=== PATIENT | female | born 2000 | race Caucasian/White ===

== ENCOUNTER 2021-10-02 16:43 | Emergency (ER) | payer SELFPAY ==
[~2021-10-02] VITALS: Ht 167.6 cm; Wt 127.3 kg
[2021-10-02] MEDS ORDERED: ACETAMINOPHEN 325 MG TAB PO ONE (18:40)
[2021-10-02] MEDS ORDERED: ONDANSETRON 4 MG ORAL DISINTEGRATING TAB PO ONE (18:40)
[2021-10-02] MEDS ORDERED: ALBUTEROL 90 MCG/ACT 8GM HFA INHALER INH ONE (18:40)
[2021-10-02] MEDS ORDERED: UNRESOLVED CLARIFICATION ENTRY XX STA (18:49)
[2021-10-02 18:53] LABS: RSV AMPLIFICATION NEGATIVE (NEGATIVE)
[2021-10-02 19:22] LABS: BASO # 0.1 10^3/uL (0.0-0.2); BASO % 0.5 % (0.0-1.0); EOS # 0.5 10^3/uL (0.0-0.5); EOS % 3.8 % (0.0-3.0); HEMATOCRIT 38.3 % (36.0-47.0); HEMOGLOBIN 11.4 g/dl (12.0-15.5); LYMPH # 2.8 10^3/uL (1.5-5.0); LYMPH % 22.1 % (24.0-44.0); MEAN CORPUSCULAR HEMOGLOBIN 21.6 pg (27.0-33.0); MEAN CORPUSCULAR HGB CONC 29.8 g/dl (32.0-36.5); MEAN CORPUSCULAR VOLUME 72.7 fl (80.0-96.0); MONO # 1.1 10^3/uL (0.0-0.8); MONO % 8.4 % (2.0-8.0); NEUTROPHILS # 8.2 10^3/uL (1.5-8.5); PLATELET COUNT, AUTOMATED 500 10^3/uL (150-450); RED BLOOD COUNT 5.27 10^6/uL (4.00-5.40); WHITE BLOOD COUNT 12.6 10^3/uL (4.0-10.0)
--- NOTE | 2021-10-02 19:33 | ECGEPIP ---
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
[2021-10-02 19:41] LABS: BLOOD UREA NITROGEN 16 MG/DL (7-18); CALCIUM LEVEL 9.1 MG/DL (8.5-10.1); CARBON DIOXIDE LEVEL 28 MEQ/L (21-32); CHLORIDE LEVEL 106 MEQ/L (98-107); CREATININE FOR GFR 0.79 MG/DL (0.55-1.30); GLOMERULAR FILTRATION RATE > 60.0 (>60); GLUCOSE, FASTING 90 MG/DL (70-100); POTASSIUM SERUM 4.1 MEQ/L (3.5-5.1); SODIUM LEVEL 138 MEQ/L (136-145)
[2021-10-02 19:48] LABS: HCG, SERUM QUALITATIVE NEGATIVE (NEGATIVE)
--- NOTE | 2021-10-02 20:11 | REP ---
INDICATION: SOB COMPARISON: None. TECHNIQUE: PA and lateral. FINDINGS: The mediastinum and cardiac silhouette are normal. The lung castro are clear and without acute consolidation, effusion, or pneumothorax. The skeletal structures are intact and normal. IMPRESSION: No acute cardiopulmonary process. <Electronically signed by Lorenzo Velarde > 10/02/212006
[2021-10-02 20:33] VITALS: O2SAT 97
[2021-10-02] MEDS ORDERED: dexameTHASONE 4 MG/ML 1ML VIAL (J1100 PER 1MG) IV ONE (21:00)
--- NOTE | 2021-10-02 21:47 | REPVR ---
PROCEDURE INFORMATION: Exam: CT Chest Without Contrast; Diagnostic Exam date and time: 10/02/2021 9:32 PM Age: 21 years old Clinical indication: Shortness of breath; Additional info: SOB wheezing TECHNIQUE: Imaging protocol: Diagnostic computed tomography of the chest without contrast. 3D rendering (Not supervised by radiologist): MIP and/or 3D reconstructed images were created by the technologist. Radiation optimization: All CT scans at this facility use at least one of these dose optimization techniques: automated exposure control; mA and/or kV adjustment per patient size (includes targeted exams where dose is matched to clinical indication); or iterative reconstruction. COMPARISON: CR Chest, 2 view PA, Lat 10/02/2021 7:53 PM FINDINGS: Lungs: Unremarkable. No consolidation. No masses. Pleural spaces: Unremarkable. No pneumothorax. No pleural effusion. Heart: Unremarkable. No cardiomegaly. No pericardial effusion. Aorta: Unremarkable. No aortic aneurysm. Lymph nodes: Unremarkable. No enlarged lymph nodes. Gallbladder and bile ducts: Cholecystectomy. Bones/joints: Dextroscoliosis. Soft tissues: Unremarkable. IMPRESSION: No acute findings. Electronically signed by: Corey Jameson On 10/02/2021 21:46:57 PM
[2021-10-02] MEDS ORDERED: PROAAER10 INH (21:57)
[2021-10-02] MEDS ORDERED: MEDR4PAK PO (21:57)
[2021-10-02 22:25] VITALS: BP 125/77
== END 2021-10-02 22:32 | disposition home or self-care (01) ==
LOC: M ED 16:43
DX: J06.9 Acute upper respiratory infection, unspecified (principal); R06.02 Shortness of breath; Z90.721 Acquired absence of ovaries, unilateral; Z90.89 Acquired absence of other organs
CPT/HCPCS: 71046; 71250; 80048; 84702; 84703; 85025; 85379; 87631; 87880; 93005; 94640; 96374; 99284; J1100; Q0162

== ENCOUNTER 2021-11-04 15:07 | Emergency (ER) | payer SELFPAY ==
[~2021-11-04] VITALS: Ht 170.2 cm; Wt 129.6 kg
[~2021-11-04 15:07] MED LIST: MEDR4PAK PO; PROAAER10 INH
[2021-11-04 15:11] VITALS: BP 137/93
== END 2021-11-04 16:32 | disposition home or self-care (01) ==
LOC: M ED 15:07
DX: B34.9 Viral infection, unspecified (principal); U07.1 COVID-19